=== PATIENT | female | born 1950 | race Two or more races ===

== ENCOUNTER 2017-12-20 09:39 | Day surgery (SDC) | payer OTHER ==
[~2017-12-20 09:39] MED LIST: AMOX1TAB5 PO; BACTROBAN22 GM TP; INTEGRA F CAPS1 EACH PO; INTESTINEX1 CA1 PO; PROTONIX40 MG PO; ULTRACET PO
== END 2017-12-20 16:15 | disposition home or self-care (01) ==
LOC: AMB-ENDOS 09:39
DX: D12.3 Benign neoplasm of transverse colon (principal); K64.8 Other hemorrhoids; D62 Acute posthemorrhagic anemia; K43.2 Incisional hernia without obstruction or gangrene

== ENCOUNTER → 2020-03-25 11:11 | Outpatient (CLI) | payer OTHER | END | disposition home or self-care (01) | LOC: LAB 11:11 → ADM 14:30 → AMB-ENDOS 04-01 14:30 → EDSTATUS 04-01 14:30 | PROVIDERS: ATTEND Surgery | DX: Z20.828 Contact with and (suspected) exposure to other viral communicable diseases (principal) ==

== ENCOUNTER 2020-05-06 07:00 | Day surgery (SDC) | payer OTHER | END 2020-05-06 14:10 | disposition home or self-care (01) | LOC: AMB-ENDOS 07:00 | PROVIDERS: ATTEND Surgery | DX: K62.89 Other specified diseases of anus and rectum (principal); K64.8 Other hemorrhoids; Z20.828 Contact with and (suspected) exposure to other viral communicable diseases ==